=== PATIENT | female | born 1955 | race Caucasian/White ===

== ENCOUNTER → 2016-09-22 17:11 | Emergency (ER) | payer BC ==
[~2016-09-22 17:11] MED LIST: Acetaminophen TAB* 325 MG PO ONE; Rivaroxaban TAB(*) 15 MG PO ONE
--- NOTE | 2016-09-22 18:47 | ED ---
Lower Extremity - HPI Summary HPI Summary: Pt here w/ LLE pain (calf) x 1 week. Sudden onset swelling and worsening of pain today. Denies trauma, hormones, travel, cancer or h/o cancer, smoking (NOTE : quit 3 months ago), h/o clotting d/o, stroke or DC. - History of Current Complaint Chief Complaint: EDExtremityLower Stated Complaint: COMMING FROM CT R/O DVT LEFT LEG Time Seen by Provider: 09/22/16 17:30 Hx Obtained From: Patient, Family/[employer] - partner Pain Intensity: 7 - Allergies/Home Medications Allergies/Adverse Reactions: Allergies Allergy/AdvReac Type Severity Reaction Status Date / Time No Known Allergies Allergy Verified 04/13/12 13:23 PMH/Surg Hx/FS Hx/Imm Hx Previously Healthy: Yes Endocrine/Hematology History: Reports: Hx Thyroid Disease - hypothyroid Denies: Hx Anticoagulant Therapy, Hx Blood Disorders, Hx Diabetes, Hx Coagulopothy Cardiovascular History: Denies: Hx Hypertension, Hx Pacemaker/ICD Respiratory History: Denies: Hx Asthma, Hx Chronic Obstructive Pulmonary Disease (COPD) History: Denies: Hx Renal Disease Neurological History: Denies: Hx Dementia, Hx Seizures Psychiatric History: Denies: Hx Substance Abuse - Cancer History Hx Chemotherapy: No Hx Radiation Therapy: No Infectious Disease History: No Infectious Disease History: Denies: Hx Hepatitis, Hx Human Immunodeficiency Virus (HIV), Traveled Outside the [place] in Last 30 Days - Family History Known Family History: Positive: None - Social History Lives: With Family Alcohol Use: None Hx Substance Use: No Substance Use Type: Reports: None Hx Tobacco Use: Yes Smoking Status (MU): Former Smoker Review of Systems Constitutional: Negative Negative: Fever, Chills, Fatigue Negative: Chest Pain Negative: Shortness Of Breath, Cough - no hemoptysis Positive: no symptoms reported Musculoskeletal: Other - see HPI Skin: Other - see HPI Negative: Rash, Bruising Neurological: Negative Psychological: Normal All Other Systems Reviewed And Are Negative: Yes Physical Exam Triage Information Reviewed: Yes Vital Signs On Initial Exam: Initial Vitals Temp Pulse Resp BP Pulse Ox 96.9 F 57 16 180/88 100 09/22/16 17:13 09/22/16 17:13 09/22/16 17:13 09/22/16 17:13 09/22/16 17:13 Vital Signs Reviewed: Yes Appearance: Positive: Well-Appearing, No Pain Distress, Well-Nourished Skin: Positive: Warm, Dry - no maurice erythema, ecchymosis, s/sx of insect bite/ rash over affected area Head/Face: Positive: Normal Head/Face Inspection Eyes: Positive: Normal, EOMI ENT: Positive: Hearing grossly normal, Pharynx normal Respiratory/Lung Sounds: Positive: Breath Sounds Present Cardiovascular: Positive: Normal, Pulses are Symmetrical in both Upper and Lower Extremities, Leg Edema Left - + Kay's Musculoskeletal: Positive: Normal, Strength/ROM Intact - pain in Lt LE w/ dorsiflexion - antalgic w/ gait Neurological: Positive: Normal, Sensory/Motor Intact, Alert, Oriented to Person Place, Time, CN Intact II-III Psychiatric: Positive: Normal Diagnostics - Vital Signs Vital Signs Temp Pulse Resp BP Pulse Ox 09/22/16 17:17 96.9 F 57 16 180/88 100 09/22/16 17:13 96.9 F 57 16 180/88 100 - Laboratory Result Diagrams: 09/22/16 19:05 09/22/16 19:05 Lab Statement: Any lab studies that have been ordered have been reviewed, and results considered in the medical decision making process. Lower Extremity Course/Dx - Course Course Of Treatment: Pt found to have DVT in LLE. Discussed risk/benefits options of tx including coumadin and non-coumadin therapies. Pt opted for xarelto. AGrees to f/u w/ PCP and return to ED if danger s/sx present. - Diagnoses Provider Diagnoses: Deep vein thrombosis (DVT) of distal vein of left lower extremity Discharge - Discharge Plan Condition: Stable Disposition: HOME Prescriptions: Rivaroxaban TAB(*) [Xarelto 15 mg(*)] 15 mg PO BID #40 tab Patient Education Materials: Deep Venous Thrombosis (ED) Forms: *Work Release Referrals: Tresa Sanford RN [Primary Care Provider] - Additional Instructions: You have a DVT in your left calf region. You have opted to treat this with xarelto. This medication is to be taken every 12 hours at the same time every day. You were prescribed a 21 days course for now however you will need to transition to a 20mg every day course - your PCP can prescribe this for you. It is important that you follow-up with your PCP this week to discuss diagnosis, treatment plan and at some point, to investigate the trigger for this clot (ie. clotting disorder, etc). Call PCP tomorrow morning to schedule appointment. *If you develop chest pain, shortness of breath, back pain, fever, racing heart rate, bloody cough, blood in urine, blood in stool, vomiting blood, return to ED *Avoid contact sports/activities and be very cautious of potential impact scenarios, fall risk situations, etc as your risk of bleeding will be increased with xarelto . You may discuss this in greater detail with your PCP.
[2016-09-22 19:13] LABS: Hematocrit 42 % (35-47); Mean Corpuscular HGB Conc 34 g/dl (31-36); Mean Corpuscular Hemoglobin 28 pg (27-31); Mean Corpuscular Volume 83 fL (80-97); Mean Platelet Volume 8 um3 (7.4-10.4); Red Blood Count 5.01 10^6/ul (4.0-5.4); Red Cell Distribution Width 13 % (10.5-15); White Blood Count 8.9 10^3/ul (3.5-10.8)
[2016-09-22 19:32] LABS: Albumin 4.1 g/dL (3.2-5.2); BUN/Creatinine Ratio 22.7 (8-20); Calcium 9.4 mg/dL (8.6-10.3); EGFR African American 117.5 (>60); EGFR Non-African American 91.4 (>60); Globulin 2.7 g/dL (2-4); Potassium 3.8 mmol/L (3.5-5.0); Total Bilirubin 0.5 mg/dL (0.2-1.0); Total Protein 6.8 g/dL (6.4-8.9)
[2016-09-22 20:36] VITALS: BP 142/58
== END | disposition home or self-care (01) ==
LOC: ED 17:11
DX: I82.4Z2 Acute embolism and thrombosis of unspecified deep veins of left distal lower extremity (principal)
CPT/HCPCS: 36415; 80053; 85025; 85610; 85730; 99283; A9270-GY

== ENCOUNTER 2018-07-19 05:34 | Inpatient (IN) | payer BC ==
--- NOTE | 2018-07-11 03:36 | HP ---
PREOPERATIVE HISTORY AND PHYSICAL: DATE OF ADMISSION/SURGERY: 07/19/18 DATE OF OFFICE VISIT: 07/07/18 ATTENDING SURGEON: Dr. Ever Mcnally.* (DICTATED BY JOSÉ VILLAGOMEZ) PROCEDURE: Left total knee replacement. CHIEF COMPLAINT: Left knee pain. HISTORY OF PRESENT ILLNESS: Sada is a 63-year-old female, who presents to the clinic for left knee pain due to left knee joint osteoarthritis. She has failed conservative measures and therefore agreed to undergo left total knee replacement with Dr. Mcnally on 07/19/18. PAST MEDICAL HISTORY: Hypertension, high cholesterol, arthritis, type 2 diabetes, hypothyroidism, GERD, Oconnell's palsy, and history of DVT 1-1/2 years ago , treated with Xarelto in the past. PAST SURGICAL HISTORY: Hysterectomy, left partial meniscectomy, and . The patient denies prior complications with anesthesia. MEDICATIONS: 1. Levothyroxine 75 mcg 1 by mouth every day. 2. Vitamin B 1 by mouth every day. 3. Vitamin D3 2000 units daily. 4. Amlodipine 5 mg 1 by mouth every day. 5. Atorvastatin 10 mg 1 by mouth every day. 6. Omeprazole 20 mg 1 by mouth every day. 7. Metformin 500 mg 1 by mouth twice a day. 8. Chantix. ALLERGIES: No known drug allergies. FAMILY HISTORY: Positive for diabetes, heart disease, and stroke. She denies family history of DVT or PE. SOCIAL HISTORY: She lives with her spouse. 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 She is a smoker, but on Chantix currently, quitting, she is 2 weeks in. She reports occasional alcohol consumption. She is right hand dominant. REVIEW OF SYSTEMS: A 14-point review of systems was reviewed with the patient. Positive for history of DVT in her leg. Denies history of pulmonary embolism. Denies history of bleeding disorders. No current fever, chills, chest pain, shortness of breath. PHYSICAL EXAMINATION GENERAL: A 63-year-old well-developed, well-nourished female, in no acute distress. VITAL SIGNS: Height 63.5, weight 201, pulse 84, blood pressure 146/96, respiratory rate 15, BMI 35.0. HEENT: Normocephalic, atraumatic. PERRLA. Throat: Clear. NECK: Supple. PULMONARY: Lungs are clear to auscultation bilaterally. No wheezing, rhonchi, or rales. CARDIO: Regular rate and rhythm. S1, S2. No murmurs, gallops, or rubs. No edema. ABDOMEN: Positive bowel sounds, soft, nontender. NEURO: Alert and oriented x3. Cranial nerves grossly intact. MUSCULOSKELETAL: Left lower extremity, skin is intact. No warmth or erythema. Mild effusion. Range of motion 0 to 130. Stable varus and valgus stress, stable Tra, and negative posterior drawer. Tenderness to palpation of the patellofemoral joint in the medial joint line. Calf soft, nontender. +5/5 strength to ankle dorsiflexion and plantar flexion. Neutral alignment of the knee. +2 DP pulse. Sensation intact to light touch distally. DIAGNOSTIC STUDIES: Multi-view x-rays of the left knee revealed osteoarthritis with osteophyte formation. ASSESSMENT: Left knee osteoarthritis. PLAN: The patient is scheduled to undergo left total knee replacement with Dr. Mcnally on 07/19/18. Percocet will be used for postop pain management and Eliquis will be used postoperatively for DVT prophylaxis since she has a history of DVT in the past. JOSÉ VILLAGOMEZ [id number]/[facility] #: [id number] MTDD
[~2018-07-19 05:34] MED LIST changes: -Acetaminophen TAB* 325 MG PO ONE; +Buffered Lidocaine 1% SYRIN* 1 ML/SYRINGE INTRADERM ONE; -Rivaroxaban TAB(*) 15 MG PO ONE
--- OUTSIDE RECORDS SUMMARY | 2018-07-19 05:37 | XMS REPORT | Continuity of Care Document ---
:1955 External Reference #:[id number] Author Name Emi Qureshi PA-C Address [address] [place] [address], [address] [place] [address] Care Team Providers Name Role Phone Sharon Gallegos FNP Primary Care Physician Unavailable Payers Date Identification Numbers Payment Provider Subscriber Policy Number: [id number] [facility] Sada Beebe Group Number: [id number] [address] [id number] PayID: [id number] [place] [address] Advance Directives Description No Information Available Problems Date Description Provider Status Onset: 04/15/2018 Localized, primary osteoarthritis Shannan Bradford MD Active Onset: 03/25/2018 Knee pain Shannan Bradford MD Active Onset: 03/25/2018 Lumbar radiculopathy Shannan Bradford MD Active Onset: 03/25/2018 Knee joint effusion Shannan Bradford MD Active Family History Date Family Member(s) Observation Comments General Diabetes General Heart Disease General Hypertension Social History Type Date Description Comments Sex Unknown Marital Status Lives With Occupation Currently Working Tobacco Use Start: Unknown Currently smokes 1-5 Cigarettes Daily ETOH Use Rarely consumes alcohol Tobacco Use Start: Unknown Patient is a current smoker, smokes every day Recreational Drug Use Never Used Drugs Tobacco Use Start: Unknown Light tobacco smoker (10 or fewer cigarettes/day) Smoking Status Reviewed: 07/11/18 Light tobacco smoker (10 or fewer cigarettes/day) Exercise Type/Frequency Exercises sporadically Allergies, Adverse Reactions, Alerts Description No Known Drug Allergies Medications Medication Date Status Form Strength Qnty SIG Indications Ordering Provider Levothyroxine Active Tablets 75mcg 1 by Unknown Sodium 000 mouth every day Vitamin B Active Tablets 1 by Unknown Complex 000 mouth every day Vitamin D3 Super Active Tablets 2000Unit daily Unknown Strength 000 Amlodipine Active Tablets 5mg 1 by Unknown Besylate 000 mouth every day Atorvastatin Active Tablets 10mg 1 by Unknown Calcium 000 mouth every day Omeprazole Active Capsules DR 20mg 1 by Unknown 000 mouth every day Metformin HCL Active Tablets 500mg 1 by Unknown 000 mouth twice a day Chantix Active Unknown 000 Sertraline HCL Hx Tablets 100mg 1 /2 by Unknown 000 - mouth every 018 day Medications Administered in Office Medication Date Status Form Strength Qnty SIG Indications Ordering Provider No Injection Administered Injection Zaneb 019 MD Suzette Technetium TC Administered Injection Guicho Oviedo 99M 015 Zoë Rios Tetrofosmin, Per Unit Dose Up To 40 Millicuries Depomedrol Administered Injection Carter, Lien, 40MG 010 PA Immunizations Description No Information Available Vital Signs Date Vital Result Comment 07/11/2018 8:51am Height 63.5 inches 5'3.50" Weight 190.00 lb Heart Rate 80 /min BP Systolic 138 mmHg BP Diastolic 76 mmHg Respiratory Rate 18 /min Pain Level 5 BMI (Body Mass Index) 33.1 kg/m2 07/07/2018 8:59am Height 63.5 inches 5'3.50" Weight 201.00 lb Heart Rate 84 /min BP Systolic 146 mmHg BP Diastolic 96 mmHg Respiratory Rate 15 /min Body Temperature 97.7 F Pain Level 7 BMI (Body Mass Index) 35.0 kg/m2 06/02/2018 8:06am Height 63.5 inches 5'3.50" Weight 190.00 lb BP Systolic 140 mmHg BP Diastolic 82 mmHg Respiratory Rate 18 /min Pain Level 3 BMI (Body Mass Index) 33.1 kg/m2 05/27/2018 8:16am Height 63.5 inches 5'3.50" Weight 190.00 lb BP Systolic 124 mmHg BP Diastolic 74 mmHg Respiratory Rate 18 /min Pain Level 3 BMI (Body Mass Index) 33.1 kg/m2 04/15/2018 10:50am Height 63.5 inches 5'3.50" Weight 190.00 lb BP Systolic 132 mmHg BP Diastolic 66 mmHg Respiratory Rate 20 /min Pain Level 3 BMI (Body Mass Index) 33.1 kg/m2 03/25/2018 11:42am Height 63.5 inches 5'3.50" Weight 190.00 lb Heart Rate 72 /min BP Systolic 124 mmHg BP Diastolic 80 mmHg Body Temperature 98.1 F Pain Level 3 BMI (Body Mass Index) 33.1 kg/m2 08/23/2014 9:53am Height 63.5 inches 5'3.50" Weight 181.00 lb with sandals Heart Rate 76 /min BP Systolic Sitting 154 mmHg La reg cuff BP Diastolic Sitting 90 mmHg La reg cuff BP Systolic Standing 150 mmHg La reg cuff BP Diastolic Standing 90 mmHg La reg cuff Respiratory Rate 17 /min BMI (Body Mass Index) 31.6 kg/m2 Ejection Fraction 65% date 07/13/14 07/06/2014 8:29am Height 63.5 inches 5'3.50" Weight 177.00 lb w/o shoes Heart Rate 60 /min BP Systolic 136 mmHg LA, reg cuff, sitting BP Diastolic 82 mmHg LA, reg cuff, sitting BP Systolic Sitting 146 mmHg Ra, reg cuff BP Diastolic Sitting 86 mmHg Ra, reg cuff BP Systolic Standing 140 mmHg Ra BP Diastolic Standing 82 mmHg Ra Respiratory Rate 18 /min BMI (Body Mass Index) 30.9 kg/m2 Results Test Date Facility Test Result H/L Range Note Urinalysis Profile 07/07/2018 [facility] Urine Color Yellow [address] [place] [address] [phone] Urine Appearance Clear Urine Specific [place] 1.017 N 1.010-1.030 Urine pH 7.0 N 5-9 Urine Urobilinogen Negative Negative Urine Ketones Negative Negative Urine Protein Negative Negative Urine Leukocytes Negative Negative Urine Blood Negative Negative Urine Nitrite Negative Negative Urine Bilirubin Negative Negative Urine Glucose Negative Negative CBC Auto Diff 07/07/2018 [facility] White Blood 7.2 10^3/uL N 3.5-10.[address] [place] [address] [phone] Red Blood Count 5.28 10^6/uL High 3.70-4.87 Hemoglobin 15.2 g/dL N 12.0-16.0 Hematocrit 44 % High 33-41 Mean Corpuscular Volume 84 fL N 80-97 Mean Corpuscular Hemoglobin 29 pg N 27-31 Mean Corpuscular HGB Conc 34 g/dL N 31-36 Red Cell Distribution Width 13 % N 10.5-15 Platelet Count 252 10^3/uL N 150-450 Mean Platelet Volume 8.3 fL N 7.4-10.4 Abs Neutrophils 4.2 10^3/uL N 1.5-7.7 Abs Lymphocytes 2.5 10^3/uL N 1.0-4.8 Abs Monocytes 0.3 10^3/uL N 0-0.8 Abs Eosinophils 0.1 10^3/uL N 0-0.6 Abs Basophils 0 10^3/uL N 0-0.2 Abs Nucleated RBC 0 10^3/uL Granulocyte % 58.2 % Lymphocyte % 34.8 % Monocyte % 4.7 % Eosinophil % 1.9 % Basophil % 0.4 % Nucleated Red Blood Cells % 0 Comp Metabolic Panel 07/07/2018 [facility] Sodium 137 mmol/L N 135-145 [address] [place] [address] [phone] Potassium 4.0 mmol/L N 3.5-5.0 Chloride 106 mmol/L N 101-111 Co2 Carbon Dioxide 25 mmol/L N 22-32 Anion Gap 6 mmol/L N 2-11 Glucose 95 mg/dL N 70-100 Blood Urea Nitrogen 20 mg/dL N 6-24 Creatinine 0.63 mg/dL N 0.51-0.95 BUN/Creatinine Ratio 31.7 High 8-20 Calcium 9.2 mg/dL N 8.6-10.3 Total Protein 7.2 g/dL N 6.4-8.9 Albumin 4.6 g/dL N 3.2-5.2 Globulin 2.6 g/dL N 2-4 Albumin/Globulin Ratio 1.8 N 1-3 Total Bilirubin 0.50 mg/dL N 0.2-1.0 Alkaline Phosphatase 77 U/L N 34-104 Alt 22 U/L N 7-52 Ast 19 U/L N 13-39 Egfr Non- 95.8 >60 Egfr 115.9 >60 2 Inr/Protime 07/07/2018 [facility] Inr 0.91 N 0.77-1.[address] [place] [address] [phone] Laboratory test 07/07/2018 [facility] Partial 31.7 seconds N 26.0-36.[address] Thrombo Time MIC Bhandari [address] PTT [phone] Type & Screen 07/07/2018 [facility] Patient B Positive [address] [place] [address] [phone] Antibody Screen NEGATIVE Urine Culture And 07/07/2018 [facility] Urine Culture SEE RESULT [address] [place], [place] [address] [phone] 1 UNILATERAL PRIMARY OSTEOARTHRITIS, LEFT KNEE 2 Because ethnic data is not always readily available, this report includes an eGFR for both -Americans and non- Americans. The National Kidney Disease Education Program (NKDEP) does not endorse the use of the MDRD equation for patients that are not between the ages of 18 and 70, are , have extremes of body size, muscle mass, or nutritional status, or are non- or non-. According to the National Kidney Foundation, irrespective of diagnosis, the stage of the disease is based on the level of kidney function: Stage Description GFR(mL/min/1.73 m(2)) 1 Kidney damage with normal or decreased GFR 90 2 Kidney damage with mild decrease in GFR 60-89 3 Moderate decrease in GFR 30-59 4 Severe decrease in GFR 15-29 5 Kidney failure <15 (or dialysis) 3 SEE RESULT BELOW Name: SADA BEEBE : [address]: Ever Mcnally MD Acct: [id number] Unit: [id number] AGE: 63 Location: [facility] Re07/07/18 SEX: F Status: REG REF SPEC: [id number] THEODORE: 07/07/18-1206 [facility] DR: Ever Mcnally MD REQ: [id number] RECD: 07/07/18 STATUS: ANGELO VOGEL DR: Sharon Gomez SUPERVISOR ENGINE ASSEMBLY _ SOURCE: URINE SPDESC: ORDERED: Urine Culture Procedure Result Reported Site Urine Culture Final 07/08/18- 1211 ML No Growth (<1,000 CFU/mL) * ML - Main Lab . END OF REPORT DEPARTMENT OF PATHOLOGY, [address] [place] [id number] Donald Rankin M.D. Director [facility] # [id number] Procedures Date Code Description Status 05/30/2018 31962 TKR Total Knee Replacement Completed 05/27/201811745 Inject/Drain Joint/Bursa Major W/O US Completed 07/26/2014 24571 Stress Test Completed 07/26/2014 94769 Myocardial Perfusion Imaging Tomographic (Spect) Multiple Completed Studies 07/13/2014 25186 ECHO Transthoracic, Real-Time 2D With Doppler And Color Completed Flow 07/06/2014 51596 EKG Tracing & Interpretation Completed 10/03/2009 87606 Rad Exam; Elbow, Limited Completed 10/03/2009 87167 Inject Tendon Sheath Or Ligament Aponeurosis Eg Plantar Completed Fascia Encounters Type Date Location Provider Dx Diagnosis Office Visit 06/02/2018 [facility] Shannan Bradford MD M17.12 Unilateral primary 8:15a [facility] osteoarthritis, left knee Office Visit 05/27/2018 [facility] Shannan Bradford MD M17.12 Unilateral primary 8:15a [facility] osteoarthritis, left knee Office Visit 04/15/2018 [facility] Shannan Bradford MD M54.16 Radiculopathy, 10:45a [facility] lumbar region M17.12 Unilateral primary osteoarthritis, left knee Office Visit 03/25/2018 11:00a [facility] Shannan Bradford, M25.462 Effusion, left Services [facility] MD murali Gonzalez M54.16 Radiculopathy, lumbar region M25.562 Pain in left knee Office Visit 08/23/2014 10:00a [place] [facility] Guicho Oviedo 786.50 Pain Chest Unspec Of Rita Rios M.D. Office Visit 07/06/2014 8:45a [place] [facility] uGicho Oviedo 785.1 Palpitations Of Rita Rios M.D. 786.50 Pain Chest Unspec Office Visit 10/03/2009 8:30a [facility] Ira Carter, 726.32 [facility] Plan of Treatment Future Appointment(s):07/19/2018 7:30 am - JOSÉ Duval at [facility]07/19/2018 7:30 am - Shannan Bradford MD at [facility].08/02/2018 2:15 pm - Shannan Bradford MD at [facility].07/19/2018 7:30 am - Ever Mcnally M.D. at [facility]. - Ever Mcnally M.D.M17.12 Unilateral primary osteoarthritis, left kneeFollow up:Follow up: Left total knee July 19, 2018
--- OUTSIDE RECORDS SUMMARY | 2018-07-19 05:38 | XMS REPORT | Continuity of Care Document ---
:1955 External Reference #:[id number] Author Name Luisito Walkerjose alejandro Care Team Providers Name Role Phone Sharon Gallegos FNP Primary Care Physician Unavailable Payers Date Identification Numbers Payment Provider Subscriber Policy Number: [id number] [facility] Sada Beebe Group Number: [id number] [address] [id number] PayID: [id number] [place]SE [place] [id number] Advance Directives Description No Information Available Problems [...] Sodium 000 mouth every day Vitamin B 00/00/0 Active Tablets 1 by Unknown Complex 000 [...] 000 Sertraline HCL Hx Tablets 100mg 1 1/2 by Unknown 000 - mouth every 018 day Medications Administered in Office Medication Date Status Form Strength Qnty SIG Indications Ordering Provider No Injection Administered Injection Shannan 019 MD Suzette Technetium TC Administered Injection [...] Result H/L Range Note Urinalysis Profile 07/07/2018 [facility] Urine Color Yellow [address] [place] [address] [phone] Urine Appearance Clear Urine Specific [place] 1.017 N 1.010-1.030 Urine pH 7.0 N 5-9 Urine Urobilinogen Negative Negative Urine Ketones Negative Negative Urine Protein Negative Negative Urine Leukocytes Negative Negative Urine Blood Negative Negative Urine Nitrite Negative Negative Urine Bilirubin Negative Negative Urine Glucose Negative Negative CBC Auto Diff 07/07/2018 [facility] White Blood 7.2 10^3/uL N 3.5-10.[address] [place] [address] [phone] Red Blood Count 5.28 10^6/uL High 3.70-4.87 [...] Cells % 0 Comp Metabolic Panel 07/07/2018 [facility] Sodium 137 mmol/L N 135-[address] [place] [address] [phone] Potassium 4.0 mmol/L N 3.5-5.0 Chloride 106 [...] >60 Egfr 115.9 >60 2 Inr/Protime 07/07/2018 [facility] Inr 0.91 N 0.77-1.[address] [place] [address] [phone] Laboratory test 07/07/2018 [facility] Partial 31.7 seconds N 26.0-36.[address] [place] [address] PTT [phone] Type & Screen 07/07/2018 [facility] Patient B Positive [address] Blood Type [place] [address] [phone] Antibody Screen NEGATIVE Urine Culture And 07/07/2018 [facility] Urine Culture SEE RESULT [address] [place] [address] [phone] 1 UNILATERAL PRIMARY OSTEOARTHRITIS, LEFT KNEE 2 [...] [address]: Ever Mcnally MD Acct: [id number] Unit: [id number] AGE: 63 Location: [facility] Re07/07/18 SEX: F Status: REG REF SPEC: [id number] THE[facility]: 07/07/18-1206 [facility] DR: Ever Mcnally MD REQ: [id number] RECD: 07/07/18 STATUS: ANGELO VOGEL DR: Sharon Gomez FOOD ASSEMBLER _ S[facility] ORDERED: Urine Culture Procedure Result Reported Site Urine Culture Final 07/08/18- 1211 ML No Growth (<1,000 CFU/mL) * ML - Main Lab . END OF REPORT DEPARTMENT OF PATHOLOGY, [address] [place] [address] Donald Rankin M.D. Director [facility] # [id number] Procedures Date Code Description Status 05/30/2018 33306 TKR Total Knee Replacement Completed 05/27/2018 14405 Inject/Drain Joint/Bursa Major W/O US Completed 07/26/2014 42764 Stress Test Completed 07/26/2014 42125 Myocardial Perfusion Imaging Tomographic (Spect) Multiple Completed Studies 07/13/2014 16188 ECHO Transthoracic, Real-Time 2D With Doppler And Color Completed Flow 07/06/2014 77332 EKG Tracing & Interpretation Completed 10/03/2009 42105 Rad Exam; Elbow, Limited Completed 10/03/2009 07659 Inject Tendon Sheath Or Ligament Aponeurosis Eg [...] M25.462 Effusion, left Services Of MD murali WuMShamir M54.16 Radiculopathy, lumbar region M25.562 Pain in left knee Office Visit 08/23/2014 10:00a [facility] Guicho Oviedo 786.50 Pain Chest Unspec Of Rita Rios M.D. Office Visit 07/06/2014 8:45a [facility] Guicho Oviedo 785.1 Palpitations Of Rita Rios M.D. 786.50 Pain Chest Unspec Office Visit 10/03/2009 8:30a [facility] Ira Carter, 726.32 [facility] Plan of Treatment Future Appointment(s):07/19/2018 7:30 am - [facility]/2018 7:30 am - Shannan Bradford MD at [facility]08/02/2018 2:15 pm - Shannan Bradford MD at [facility].07/19/2018 7:30 am - Ever Mcnally M.D. at [facility] - Ever Mcnally M.D.M17.12 Unilateral primary osteoarthritis, left kneeFollow up:Follow up: Left total knee July 19, 2018
--- OUTSIDE RECORDS SUMMARY | 2018-07-19 05:38 | XMS REPORT | Continuity of Care Document ---
:1955 External Reference #:[id number] Author Name Yarelis [place] Care Team Providers Name Role Phone Sharon Gallegos FNP Primary Care Physician Unavailable Payers Date Identification Numbers Payment Provider Subscriber Policy Number: [id number] [facility] Sada Coffey Group Number: [id number] Box PayID: [id number] JOSE LUIS Umaña [id number] Advance Directives Description No Information Available Problems [...] (10 or fewer cigarettes/day) Smoking Status Reviewed: 07/07/18 Light tobacco smoker (10 or fewer cigarettes/day) [...] Ordering Provider No Injection Administered Injection Shannan Bradford MD Technetium TC Administered Injection Guicho [place] 99M 015 Zoë Rios Tetrofosmin, Per Unit Dose Up To 40 Millicuries Depomedrol Administered Injection Carter, Lien, 40MG 010 PA Immunizations Description No Information Available Vital Signs Date Vital Result Comment 07/07/2018 8:59am Height 63.5 inches 5'3.50" Weight [...] BMI (Body Mass Index) 30.9 kg/m2 Results Description No Information Available Procedures Date Code Description Status 05/30/2018 04055 TKR Total Knee Replacement Completed 05/27/2018 15035 Inject/Drain Joint/Bursa Major W/O US Completed 07/26/2014 48719 Stress Test Completed 07/26/2014 96357 Myocardial Perfusion Imaging Tomographic (Spect) Multiple Completed Studies 07/13/2014 17702 ECHO Transthoracic, Real-Time 2D With Doppler And Color Completed Flow 07/06/2014 03709 EKG Tracing & Interpretation Completed 10/03/2009 03714 Rad Exam; Elbow, Limited Completed 10/03/2009 70449 Inject Tendon Sheath Or Ligament Aponeurosis Eg Plantar Completed Fascia Encounters Type Date Location Provider Dx Diagnosis Office Visit 06/02/2018 Orthopedic Shannan Bradford MD M17.12 Unilateral primary 8:15a [facility] osteoarthritis, left knee Office Visit 05/27/2018 Orthopedic Shannan Bradford MD M17.12 Unilateral primary 8:15a [facility] osteoarthritis, left knee Office Visit 04/15/2018 Orthopedic Shannan Bradford MD M54.16 Radiculopathy, 10:45a [facility] lumbar region M17.12 Unilateral primary osteoarthritis, left knee Office Visit 03/25/2018 11:00a Orthopedic Shannan Bradford, M25.462 Effusion, left [facility] MD murali WuMShamir M54.16 Radiculopathy, lumbar region M25.562 Pain in left knee Office Visit 08/23/2014 10:00a [facility] Guicho D. 786.50 Pain Chest Unspec Of Rita Rios M.D. Office Visit 07/06/2014 8:45a [facility] Guicho Preet 785.1 Palpitations Of Rita Rios M.D. 786.50 Pain Chest Unspec Office Visit 10/03/2009 8:30a Orthopedic Ira Carter, 726.32 Epicondylitis [facility] Plan of Treatment Future Appointment(s):08/02/2018 2:15 pm - Shannan [facility]/2018 7:30 am - Ever Mcnally M.D. at [facility]/07/2018 - Shannan Bradford, MDM17.12 Unilateral primary osteoarthritis, left kneeFollow up:Follow up: 10-14 days post op
[2018-07-19] MEDS ORDERED: Famotidine TAB* 20 MG PO ONE (06:00)
[2018-07-19] MEDS ORDERED: Gabapentin CAP(*) 300 MG PO ONE (06:00)
[2018-07-19] MEDS ORDERED: celeCOXIB CAP* 200 MG PO ONE (06:00)
[2018-07-19] MEDS ORDERED: Dexamethasone IV* 4 MG/ML 1 ML (4 MG) IV SLOW PU ONE (06:00)
[2018-07-19] MEDS ORDERED: Acetaminophen TAB* 325 MG PO ONE (06:00)
[2018-07-19] MEDS ORDERED: Acetaminophen TAB* 325 MG ONE (06:12)
[2018-07-19] MEDS ORDERED: Gabapentin CAP(*) 300 MG ONE (06:12)
[2018-07-19] MEDS ORDERED: celeCOXIB CAP* 100 MG ONE (06:12)
[2018-07-19] MEDS ORDERED: Dexamethasone IV* 4 MG/ML 1 ML (4 MG) ONE (06:12)
[2018-07-19] MEDS ORDERED: ceFAZolin 2 GM in NS PREMIX(*) 2 GM/100 ML BAG IVPB ONE (06:13)
[2018-07-19] MEDS ORDERED: Famotidine IV* 10 MG/ML 2 ML (20 mg) ONE (06:13)
[2018-07-19] MEDS: Lactated Ringers 1000 ML Bag* 1,000 ML IV SCH ×4 (06:24→23:58)
[2018-07-19] MEDS ORDERED: Famotidine TAB* 20 MG ONE (06:27)
[2018-07-19] MEDS ORDERED: Lidocaine 1%* 5 ML VIAL ONE (07:11)
[2018-07-19] MEDS ORDERED: ROPIVACAINE 5 MG/ML 30 ML BTL (0.5%) ONE (07:11)
[2018-07-19] MEDS ORDERED: fentaNYL* 50 MCG/ML 2 ML VIAL (100 MCG VIAL) ONE ×2 (07:20→11:54)
[2018-07-19] MEDS ORDERED: Midazolam* 1 MG/ML 2 ML VIAL (2 MG) ONE (07:20)
[2018-07-19] MEDS ORDERED: Rocuronium* 10 MG/ML VIAL ONE (07:20)
[2018-07-19] MEDS ORDERED: Bupivacaine 0.5% W/EPI SDV* 30 ML VIAL ONE (07:33)
[2018-07-19] MEDS ORDERED: KETAMINE HCL* 50 MG/ML 10 ML VIAL ONE (08:05)
[2018-07-19] MEDS ORDERED: HYDROmorphone INJ1* 1 MG/ML SYRINGE ONE ×2 (08:05→11:46)
[2018-07-19] MEDS ORDERED: DiMENhydriNATE IV* 50 MG/ML VIAL IV PUSH PRN (08:26)
[2018-07-19] MEDS ORDERED: PROCHLORPERAZINE INJ 5 MG/ML 2 ML VIAL IV PRN (08:26)
[2018-07-19] MEDS ORDERED: oxyCODONE TAB* 5 MG TAB PO PRN (08:26)
[2018-07-19] MEDS ORDERED: Naloxone* 0.4 MG/ML 1 ML VIAL IV PRN (08:26)
[2018-07-19] MEDS ORDERED: Ketorolac INJ* 30 MG/ML 1 ML VIAL IV PRN (08:26)
[2018-07-19] MEDS ORDERED: Acetaminophen IV 1GM/100ML * 1,000 MG/100 ML VIAL IVPB ONE (08:26)
[2018-07-19] MEDS ORDERED: Acetaminophen IV 1GM/100ML * 100 ML ONE (10:34)
[2018-07-19] MEDS ORDERED: Ketorolac INJ* 30 MG/ML 1 ML VIAL ONE (10:34)
[2018-07-19] MEDS ORDERED: Ondansetron INJ* 2 MG/ML VIAL ONE (10:38)
[2018-07-19] MEDS ORDERED: Magnesium Hydroxide LIQ* 30 ML UDC PO PRN (10:58)
[2018-07-19] MEDS ORDERED: Morphine 4 MG/ML VIAL (1 ml) 4 MG/ML VIAL IV PRN (10:58)
[2018-07-19] MEDS ORDERED: Ondansetron ODT TAB* 4 MG PO PRN (10:58)
[2018-07-19] MEDS ORDERED: diPHENhydraMINE PO* 25 MG PO PRN (10:58)
[2018-07-19] MEDS ORDERED: diPHENhydraMINE IV* 50 MG/ML 1 ml VIAL (BENADRYL) IV PRN (10:58)
[2018-07-19] MEDS ORDERED: traMADol TAB* 50 MG PO PRN (10:58)
[2018-07-19] MEDS ORDERED: Acetaminophen TAB* 325 MG PO SCH (11:00)
[2018-07-19] MEDS ORDERED: oxyCODONE/Acetamin 5/325 MG* TAB PO PRN (11:03)
[2018-07-19] MEDS ORDERED: Acetaminophen TAB* 325 MG PO PRN (11:26)
[2018-07-19] MEDS: HYDROmorphone INJ1* 1 MG/ML SYRINGE IV PRN ×2 (11:47→11:57)
[2018-07-19] MEDS: fentaNYL* 50 MCG/ML 2 ML VIAL (100 MCG VIAL) IV PRN ×4 (11:54→12:04)
[2018-07-19] MEDS ORDERED: Dextrose 50% Syringe 50 ML* 25 GM/50 ML SYRINGE IV PUSH PRN (12:28)
[2018-07-19] MEDS ORDERED: oxyCODONE TAB* 5 MG TAB ONE (13:14)
--- NOTE | 2018-07-19 13:34 | CONS ---
CONSULTATION REPORT: DATE OF CONSULT: 07/19/18 PRIMARY CARE PROVIDER: JOSÉ Zimmer REQUESTING PHYSICIAN: Ever Mcnally MD. ATTENDING PHYSICIAN: Mark Law MD (dictated by JOSÉ Jones). REASON FOR CONSULTATION: Co-medical management. HISTORY OF PRESENT ILLNESS/HOSPITAL COURSE: I refer you to Dr. Mcnally's history and physical from 07/07/18 for complete details, but in short Ms. Coffey is a 63-year- old female with a history of left knee osteoarthritis. She has failed conservative treatment and has elected for a left total knee arthroplasty, which she presented [place] [facility] [place]. She is currently postoperative day 0 left total knee. She has a past medical history of hypertension, hyperlipidemia , diabetes. She denies chest pain, shortness of breath, palpitations, headaches or blurred vision. She states that she feels cold. She denies pain in the limbs but does report pain, rated at 10/10 in the left knee. She states that it feels like "somebody is sitting on it." PAST MEDICAL HISTORY: 1. Hypertension. 2. Hyperlipidemia. 3. Diabetes mellitus type 2. 4. GERD. 5. Osteoarthritis. 6. Oconnell's palsy. 7. History of DVT. PAST SURGICAL HISTORY: Hysterectomy, left partial meniscectomy, x2. HOME MEDICATIONS: 1. Amlodipine 5 mg daily. 2. Metformin 500 mg b.i.d. 3. Levothyroxine 75 mcg daily. 4. Atorvastatin 10 mg daily. 5. Vitamin B 1 daily. 6. Vitamin D3 2000 units daily. 7. Omeprazole 20 daily. 8. Chantix 1 mg p.o. b.i.d. ALLERGIES: NKDA. FAMILY HISTORY: The patient reports family history of diabetes mellitus, heart disease, and stroke. She denies history of cancer. SOCIAL HISTORY: Ms. Coffey is a former smoker. She has been on Chantix for approximately 3 weeks and has been tobacco-free for 3 weeks. She does drink alcohol. She states she drinks approximately 1 drink per week. She denies use of illicit drugs. She lives at home with her . 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 In the event that she is unable to make her own medical decision, she appoints her , Unruly Coffey, to be her surrogate. REVIEW OF SYSTEMS: A 10-point review of systems was performed and all the pertinent positives and negatives are in the HPI. PHYSICAL EXAM: General: Ms. Coffey is a well-developed, well-nourished, middle- aged white woman who is sleeping upon arrival. She wakes easily. She is reported to be in pain but appears to be in no acute distress. Vital Signs: Temperature 96.8, heart rate 90, respiratory rate 16, oxygen saturation 99% on 2 L, blood pressure 144/82. HEENT: Visual jessica are grossly intact. Her pupils are equally round and reactive to light. Extraocular movements are intact. Hearing is grossly intact. Oral mucous membranes are dry. There are no lesions. The pharynx is clear. Cardiovascular: Regular rate and rhythm with S1, S2 present. No murmurs, rubs, or gallops. There is no JVD. Respiratory: Symmetrical chest expansion with no use of accessory muscles. Lungs are clear to auscultation. There is no rhonchi, wheezes, or rubs. Abdomen: Bowel sounds in all quadrants. The abdomen is soft and nontender to palpation. There is no hepatosplenomegaly. Extremities: Skin is warm and smooth bilaterally. There is no edema, clubbing, or cyanosis. The left knee has dressing in place that is clean, dry, and intact. Cryo unit in place. The patient has SCDs to both lower extremities. Capillary refill, sensation, and pulses are within normal limits bilaterally. The patient is able to move all of her extremities. Neuro: The patient is asleep upon arrival but wakes easily. She is alert, she is oriented. ASSESSMENT AND PLAN: Ms. Coffey is a 63-year-old female with a past medical history as described above, who presented to [facility] today for an elective left total knee arthroplasty. The patient will be admitted for: 1. Left total knee arthroplasty. Management per Orthopedics. 2. Hypertension. The patient's home medication amlodipine will be continued. 3. Diabetes mellitus type 2. This medication will be held temporarily. The patient will be placed on sliding scale insulin a.c. and h.s. Metformin can be resumed at discharge. 4. Hyperlipidemia. Continue atorvastatin. 5. Gastroesophageal reflux disease. Continue omeprazole. 6. Tobacco cessation. Continue Chantix at home dose. 7. DVT prophylaxis. DVT prophylaxis per Orthopedics. The patient is noted to have a history of DVT. She is placed on Eliquis 2.5 mg p.o. b.i.d. 8. Code status. Full code. TIME SPENT: Approximately 30 minutes was spent on this consultation, greater than half that time was spent with the patient and her obtaining history , performing physical, and reviewing the plan of care. JOSÉ OSWALD [id number]/CPS #: [id number] MTDD
[2018-07-19] MEDS ORDERED: Morphine INJ* 2 MG/ML 1 ML SYRINGE (TWO MG - NEW SYRINGE VERSION) ONE (14:24)
[2018-07-19] MEDS: ceFAZolin 1 GM ADVAN(*) 1 GM in NS 0.9% 50 ML* 50 ML IVPB SCH ×2 (16:06→23:54)
--- NOTE | 2018-07-19 16:59 | PN ---
Progress Note - Progress Note Date of Service: 07/19/18 Note: Pt seen at bedside POD 0. Knee is painful, due for pain meds in a few minutes. Denies CP, SOB, dizziness or nausea. Dressing CDI, cryo cuff in use, thigh is soft, DF/PF intact, DP2+, sensation intact to light touch distally. Hx DVT on eliquis 2.5 mg po BID starting tomorrow morning.
[2018-07-19] MEDS: oxyCODONE/Acetamin 5/325 MG* TAB PO PRN ×2 (17:03→21:42)
[2018-07-19] MEDS: Atorvastatin* 10 MG TAB PO SCH (17:03)
[2018-07-19] MEDS: Insulin LISPRO* 1 UNITS UNIT SUBCUT SCH ×2 (18:17→21:43)
[2018-07-19] MEDS: oxyCODONE TAB* 5 MG TAB PO PRN ×2 (19:52→23:54)
[2018-07-19] MEDS: Docusate CAP* 100 MG PO SCH (19:55)
[2018-07-19] MEDS: Sertraline* 100 MG TAB PO SCH (19:56)
[2018-07-19] MEDS: Pantoprazole TAB * 40 MG TAB PO SCH (19:56)
[2018-07-19] MEDS: Magnesium Hydroxide LIQ* 30 ML UDC PO SCH (19:57)
[2018-07-19] MEDS ORDERED: amLODIPine TAB* 5 MG PO SCH (21:00)
[2018-07-20] MEDS: oxyCODONE/Acetamin 5/325 MG* TAB PO PRN ×5 (02:15→21:53)
[2018-07-20] MEDS: oxyCODONE TAB* 5 MG TAB PO PRN ×5 (05:10→23:52)
[2018-07-20 05:40] LABS: Hematocrit 30 % (33-41); Hemoglobin 10.3 g/dL (12.0-16.0); Mean Platelet Volume 8.3 fL (7.4-10.4); Platelet Count 194 10^3/uL (150-450)
[2018-07-20 05:56] LABS: BUN/Creatinine Ratio 21.5 (8-20); EGFR African American 111.8 (>60); EGFR Non-African American 92.4 (>60); Potassium 3.9 mmol/L (3.5-5.0)
[2018-07-20] MEDS: Insulin LISPRO* 1 UNITS UNIT SUBCUT SCH ×4 (07:49→20:07)
[2018-07-20] MEDS ORDERED: NS 0.9% 500 ML* 500 ML IV SCH (08:00)
[2018-07-20] MEDS: ceFAZolin 1 GM ADVAN(*) 1 GM in NS 0.9% 50 ML* 50 ML IVPB SCH (08:37)
[2018-07-20] MEDS: Magnesium Hydroxide LIQ* 30 ML UDC PO SCH ×2 (08:38→19:53)
[2018-07-20] MEDS: Apixaban* 2.5 MG TAB PO SCH ×2 (08:39→19:52)
[2018-07-20] MEDS: Docusate CAP* 100 MG PO SCH ×2 (08:39→19:51)
[2018-07-20] MEDS: Pantoprazole TAB * 40 MG TAB PO SCH (08:39)
[2018-07-20] MEDS: Sertraline* 100 MG TAB PO SCH (08:39)
[2018-07-20] MEDS ORDERED: Pneumococcal *Vac Polyvalent 0.5 ML VIAL IM ONE (09:00)
--- NOTE | 2018-07-20 09:12 | PN ---
Progress Note - Progress Note Date of Service: 07/20/18 SOAP: Subjective: []Patient was seen and examined at bedside today. Knee pain is rated 4/10, very pleased with pain control. Denies CP, SOB, dizziness, nausea. Has a history of DVT, no complaint of calf pain, CP, SOB. Anticipates dc to home tomorrow with her as her caregiver. Objective: []General: Well appearing, NAD LLE: Left knee dressing CDI, thigh is soft, DF/PF intact, DP2+, sensation intact to light touch distally Calves are supple and nontender without erythema, edema or palpable cords Assessment: [] POD 1 sp left total knee replacement 07/[address] Bradford and Dr Mcnally Plan: []WBAT PT/OT eliquis 2.5 mg po bid x 30 days post op for dvt prophylaxis Vital Signs Temp 98.7 F 07/20/18 08:03 Pulse 65 07/20/18 08:03 Resp 16 07/20/18 08:03 BP 116/57 07/20/18 08:03 Pulse Ox 95 07/20/18 08:03 Intake & Output 07/19/18 07/20/18 07/20/18 18:59 06:59 18:59 Intake Total 2840 1997 480 Output Total 1999 980 200 Balance 840 1017 280 Intake: IV Fluids 2600 906 LR 2600 906 IVPB 61 ABX - CEFAZOLIN 61 Oral 240 1030 480 Output: Urine 200 Morales 2000 980 Other: # Bowel Movements 0 Laboratory Last Values Hgb 10.3 g/dL (12.0-16.0) L 07/20/18 05:23 Hct 30 % (33-41) L 07/20/18 05:23 Plt Count 194 10^3/uL (150-450) 07/20/18 05:23 MPV 8.3 fL (7.4-10.4) 07/20/18 05:23 Sodium 136 mmol/L (135-145) 07/20/18 05:23 Potassium 3.9 mmol/L (3.5-5.0) 07/20/18 05:23 Chloride 105 mmol/L (101-111) 07/20/18 05:23 Carbon Dioxide 28 mmol/L (22-32) 07/20/18 05:23 Anion Gap 3 mmol/L (2-11) 07/20/18 05:23 BUN 14 mg/dL (6-24) 07/20/18 05:23 Creatinine 0.65 mg/dL (0.51-0.95) 07/20/18 05:23 Est GFR ( Amer) 111.8 (>60) 07/20/18 05:23 Est GFR (Non-Af Amer) 92.4 (>60) 07/20/18 05:23 BUN/Creatinine Ratio 21.5 (8-20) H 07/20/18 05:23 Glucose 134 mg/dL (70-100) H 07/20/18 05:23 POC Glucose (mg/dL) 138 mg/dL (70-100) H 07/20/18 08:04 Calcium 8.0 mg/dL (8.6-10.3) L 07/20/18 05:23
--- NOTE | 2018-07-20 09:21 | PN ---
Progress Note - Progress Note Date of Service: 07/20/18 Note: Pt seen and examined. She is doing ok. Pain controlled. Denies SOB or calf pain. Ambulated with PT. Temp Pulse Resp BP Pulse Ox 98.7 F 65 16 116/57 95 07/20/18 08:03 07/20/18 08:03 07/20/18 08:03 07/20/18 08:03 07/20/18 08:03 NAD. LLE: dressing in place. calf soft nontender, silt grossly distally. able to flex/ext digits and DF/PF foot. Laboratory Results - last 24 hr 07/19/18 07/19/18 07/19/18 06:22 17:03 21:34 Hgb Hct Plt Count MPV Sodium Potassium Chloride Carbon Dioxide Anion Gap BUN Creatinine Est GFR ( Amer) Est GFR (Non-Af Amer) BUN/Creatinine Ratio Glucose POC Glucose (mg/dL) 123 H 145 H 144 H Calcium 07/20/18 07/20/18 07/20/18 05:23 05:23 07:30 Hgb 10.3 L Hct 30 L Plt Count 194 MPV 8.3 Sodium 136 Potassium 3.9 Chloride 105 Carbon Dioxide 28 Anion Gap 3 BUN 14 Creatinine 0.65 Est GFR ( Amer) 111.8 Est GFR (Non-Af Amer) 92.4 BUN/Creatinine Ratio 21.5 H Glucose 134 H POC Glucose (mg/dL) 63 L Calcium 8.0 L 07/20/18 08:04 Hgb Hct Plt Count MPV Sodium Potassium Chloride Carbon Dioxide Anion Gap BUN Creatinine Est GFR ( Amer) Est GFR (Non-Af Amer) BUN/Creatinine Ratio Glucose POC Glucose (mg/dL) 138 H Calcium Xrays acceptable A/P 63 yo F POD#1 from L TKA doing well analgesia PT eliquis for DVT ppx due to history dispo when stable.
[2018-07-20] MEDS: Ondansetron INJ* 2 MG/ML VIAL IV PRN ×2 (09:42→23:58)
--- NOTE | 2018-07-20 15:56 | PN ---
Subjective Date of Service: 07/20/18 Interval History: Resting in recliner on assessment with at bedside. Reports pain was severe this morning after PT, but better controlled this afternoon after PT. Reports one episode of dizziness after changing positions this morning that has since resolved. Reports she is voiding without difficulty since barreto removed. Denies calf pain/tenderness, numbness/tinging, cp, sob, nausea, vomiting, diarrhea, fever, chills Objective Active Medications: Acetaminophen (Tylenol Tab*) 975 mg PO Q8H PRN PRN Reason: FEVER/PAIN Apixaban (Eliquis*) 2.5 mg PO BID [facility] Last Admin: 07/20/18 08:39 Dose: 2.5 mg Atorvastatin Calcium (Lipitor*) 10 mg PO 1700 [facility] Last Admin: 07/19/18 17:03 Dose: 10 mg Cyclobenzaprine HCl (Flexeril Tab*) 10 mg PO TID PRN PRN Reason: SPASMS Dextrose (D50w Syringe 50 Ml*) 12.5 gm IV PUSH .FOR FS < 60 - SS PRN PRN Reason: FS < 60 Diphenhydramine HCl (Benadryl Iv*) 25 mg IV Q6H PRN PRN Reason: itching Diphenhydramine HCl (Benadryl Po*) 25 mg PO Q6H PRN PRN Reason: itching Docusate Sodium (Colace Cap*) 100 mg PO BID [facility] Last Admin: 07/20/18 08:39 Dose: 100 mg Lactated Ringer's (Lactated Ringers 1000 Ml Bag*) 1,000 mls @ 100 mls/hr IV PER RATE [facility] Last Admin: 07/19/18 23:58 Dose: 100 mls/hr Insulin Human Lispro (Humalog*) 0 units SUBCUT ACHS [facility]; Protocol Last Admin: 07/20/18 11:45 Dose: Not Given Magnesium Hydroxide (Milk Of Magnesia Liq*) 30 ml PO BID [facility] Last Admin: 07/20/18 08:38 Dose: 30 ml Magnesium Hydroxide (Milk Of Magnesia Liq*) 30 ml PO Q6H PRN PRN Reason: constipation Morphine Sulfate (Morphine 4 Mg/Ml Vial (1 Ml)) 2 mg IV Q2H PRN PRN Reason: PAIN - UNRELIEVED Ondansetron HCl (Zofran Inj*) 4 mg IV Q6H PRN PRN Reason: nausea Last Admin: 07/20/18 09:42 Dose: 4 mg Ondansetron HCl (Zofran Odt Tab*) 4 mg PO Q6H PRN PRN Reason: NAUSEA Oxycodone HCl (Roxycodone Tab*) 10 mg PO Q4H PRN PRN Reason: PAIN - SEVERE Last Admin: 07/20/18 15:06 Dose: 10 mg Oxycodone/Acetaminophen (Percocet 5/325 Tab*) 1 tab PO Q4H PRN PRN Reason: PAIN - MODERATE Oxycodone/Acetaminophen (Percocet 5/325 Tab*) 2 tab PO Q4H PRN PRN Reason: PAIN - MODERATE TO SEVERE Last Admin: 07/20/18 12:16 Dose: 2 tab Pantoprazole Sodium (Protonix Tab*) 40 mg PO DAILY [facility] Last Admin: 07/20/18 08:39 Dose: 40 mg Sertraline HCl (Zoloft*) 200 mg PO DAILY [facility] Last Admin: 07/20/18 08:39 Dose: 200 mg Varenicline (Chantix (Nf)) 1 mg PO BID [facility]; Protocol Last Admin: 07/20/18 08:38 Dose: 1 mg Vital Signs - 8 hr 07/20/18 07/20/18 07/20/18 08:00 08:03 09:43 Temperature 98.7 F Pulse Rate 65 Respiratory 20 16 18 Rate Blood Pressure 116/57 (mmHg) O2 Sat by Pulse 95 95 Oximetry 07/20/18 07/20/18 07/20/18 09:47 11:16 12:16 Temperature 97.7 F Pulse Rate 61 Respiratory 20 16 18 Rate Blood Pressure 132/62 (mmHg) O2 Sat by Pulse 97 Oximetry 07/20/18 07/20/18 15:06 15:07 Temperature Pulse Rate Respiratory 18 18 Rate Blood Pressure (mmHg) O2 Sat by Pulse Oximetry Oxygen Devices in Use Now: None Appearance: Comfortable, NAD Eyes: No Scleral Icterus Ears/Nose/Mouth/Throat: Clear Oropharnyx, Mucous Membranes Moist Neck: NL Appearance and Movements; NL JVP Respiratory: Symmetrical Chest Expansion and Respiratory Effort, Clear to Auscultation Cardiovascular: NL Sounds; No Murmurs; No JVD, RRR, - - Trace edema to LLE Abdominal: NL Sounds; No Tenderness; No Distention Lymphatic: No Cervical Adenopathy Extremities: No Clubbing, Cyanosis Skin: No Rash or Ulcers Neurological: Alert and Oriented x 3, NL Muscle Strength and Tone Nutrition: Taking PO's Result Diagrams: 07/20/18 05:23 07/20/18 05:23 Additional Lab and Data: Laboratory Results - last 24 hr 07/19/18 07/19/18 07/19/18 06:22 17:03 21:34 Hgb Hct Plt Count MPV Sodium Potassium Chloride Carbon Dioxide Anion Gap BUN Creatinine Est GFR ( Amer) Est GFR (Non-Af Amer) BUN/Creatinine Ratio Glucose POC Glucose (mg/dL) 123 H 145 H 144 H Calcium 07/20/18 07/20/18 07/20/18 05:23 05:23 07:30 Hgb 10.3 L Hct 30 L Plt Count 194 MPV 8.3 Sodium 136 Potassium 3.9 Chloride 105 Carbon Dioxide 28 Anion Gap 3 BUN 14 Creatinine 0.65 Est GFR ( Amer) 111.8 Est GFR (Non-Af Amer) 92.4 BUN/Creatinine Ratio 21.5 H Glucose 134 H POC Glucose (mg/dL) 63 L Calcium 8.0 L 07/20/18 07/20/18 08:04 11:37 Hgb Hct Plt Count MPV Sodium Potassium Chloride Carbon Dioxide Anion Gap BUN Creatinine Est GFR ( Amer) Est GFR (Non-Af Amer) BUN/Creatinine Ratio Glucose POC Glucose (mg/dL) 138 H 117 H Calcium Microbiology and Other Data: . Assess/Plan/Problems-Billing Assessment: 63 yr old female with pmh of htn, hld, dm2, gerd, oa, enrique's palsy, hx of dvt; who is status post left total knee replacement - Patient Problems (1) Status post total left knee replacement Comment: - POD 1 - Management per ortho (2) Dizziness Comment: - Resolved - Suspected seconary to hypotension, post op status, medications, dehydration - Cont IVF - Cont to monitor (3) Hypertension Comment: - Amlodipine held this morning given report of dizziness and documented mild hypotension. - Now normotensive. - Consider restarting tomorrow or may resume at discharge (4) Hyperlipidemia Comment: - Cont statin (5) Diabetes Comment: - Cont to hold Metformin while inpatient and continue sliding scale - May resume Metformin at discharge (6) GERD (gastroesophageal reflux disease) Comment: - Cont omeprazole (7) History of DVT (deep vein thrombosis) Comment: - DVT prophylasix per ortho (8) DVT prophylaxis Comment: - Eliquis per ortho Attending: Rebecca Daly
[2018-07-20] MEDS: Atorvastatin* 10 MG TAB PO SCH (17:00)
[2018-07-20] MEDS: Cyclobenzaprine TAB* 10 MG PO PRN ×2 (19:51→23:52)
[2018-07-21] MEDS: oxyCODONE/Acetamin 5/325 MG* TAB PO PRN ×4 (05:21→19:51)
[2018-07-21 06:24] LABS: Hematocrit 29 % (33-41); Mean Platelet Volume 8.2 fL (7.4-10.4); Platelet Count 195 10^3/uL (150-450)
--- NOTE | 2018-07-21 06:44 | PN ---
Progress Note - Progress Note Date of Service: 07/21/18 Note: Pt in pain overnight not controlled well. Denies SOB or CP. No numbness or tingling. Temp Pulse Resp BP Pulse Ox 99.0 F 95 20 116/64 92 07/21/18 03:55 07/21/18 03:55 07/21/18 05:21 07/21/18 03:55 07/21/18 03:[address]. cold pack in place. difficulty bending and extending leg due to pain. calf soft and nontender. sensate to light touch distally. brisk cap refill. xrays acceptable A/P WBAT, ROM- PT/OT eliquis for dvt ppx pain control. will have to change up pain medication dispo when meets criteria
[2018-07-21] MEDS: oxyCODONE TAB* 5 MG TAB PO PRN ×3 (07:21→17:32)
[2018-07-21] MEDS: Magnesium Hydroxide LIQ* 30 ML UDC PO SCH ×2 (07:22→19:50)
[2018-07-21] MEDS: Insulin LISPRO* 1 UNITS UNIT SUBCUT SCH ×4 (07:27→20:17)
[2018-07-21] MEDS: Docusate CAP* 100 MG PO SCH ×2 (08:34→19:50)
[2018-07-21] MEDS: Sertraline* 100 MG TAB PO SCH (08:34)
[2018-07-21] MEDS: Apixaban* 2.5 MG TAB PO SCH ×2 (08:34→19:51)
[2018-07-21] MEDS: Pantoprazole TAB * 40 MG TAB PO SCH (08:34)
[2018-07-21] MEDS ORDERED: Ketorolac INJ* 15 MG/ML 1 ML VIAL IV PUSH PRN (09:19)
[2018-07-21] MEDS ORDERED: Ketorolac INJ* 15 MG/ML 1 ML VIAL ONE (09:28)
[2018-07-21] MEDS ORDERED: Magnesium Hydroxide LIQ* 30 ML UDC PO PRN ×2 (10:32→11:00)
[2018-07-21] MEDS ORDERED: Polyethylene Glycol 3350* 17 GM PACKET PO PRN (10:32)
[2018-07-21] MEDS ORDERED: Senna TAB PO PRN (10:32)
--- NOTE | 2018-07-21 10:34 | PN ---
Subjective Date of Service: 07/21/18 Interval History: Patient continues to be in severe pain. Patient states that her pain is severe at rest and is worse with PT. Patient states that she got somewhat dizzy with exertion. Patient is having intermittent nausea with is responsive to medication. Patient denies CP, SOB, F/C, abdominal pain, dysuria, or other pain. Patient is passing gas and has not had a BM. Family History: Unchanged from Admission Social History: Unchanged from Admission Past Medical History: Unchanged from Admission Objective Active Medications: Acetaminophen (Tylenol Tab*) 975 mg PO Q8H PRN PRN Reason: FEVER/PAIN Apixaban (Eliquis*) 2.5 mg PO BID [facility] Last Admin: 07/21/18 08:34 Dose: 2.5 mg Atorvastatin Calcium (Lipitor*) 10 mg PO 1700 [facility] Last Admin: 07/20/18 17:00 Dose: 10 mg Cyclobenzaprine HCl (Flexeril Tab*) 10 mg PO TID PRN PRN Reason: SPASMS Last Admin: 07/20/18 23:52 Dose: 10 mg Dextrose (D50w Syringe 50 Ml*) 12.5 gm IV PUSH .FOR FS < 60 - SS PRN PRN Reason: FS < 60 Diphenhydramine HCl (Benadryl Iv*) 25 mg IV Q6H PRN PRN Reason: itching Diphenhydramine HCl (Benadryl Po*) 25 mg PO Q6H PRN PRN Reason: itching Docusate Sodium (Colace Cap*) 100 mg PO BID [facility] Last Admin: 07/21/18 08:34 Dose: 100 mg Lactated Ringer's (Lactated Ringers 1000 Ml Bag*) 1,000 mls @ 100 mls/hr IV PER RATE [facility] Last Admin: 07/19/18 23:58 Dose: 100 mls/hr Insulin Human Lispro (Humalog*) 0 units SUBCUT ACHS [facility]; Protocol Last Admin: 07/21/18 07:27 Dose: Not Given Ketorolac Tromethamine (Toradol Inj*) 15 mg IV PUSH Q6H PRN PRN Reason: PAIN - MODERATE Magnesium Hydroxide (Milk Of Magnesia Liq*) 30 ml PO BID [facility] Last Admin: 07/21/18 07:22 Dose: 30 ml Magnesium Hydroxide (Milk Of Magnesia Liq*) 30 ml PO Q6H PRN PRN Reason: constipation Morphine Sulfate (Morphine 4 Mg/Ml Vial (1 Ml)) 2 mg IV Q2H PRN PRN Reason: PAIN - UNRELIEVED Last Admin: 07/20/18 23:59 Dose: 2 mg Ondansetron HCl (Zofran Inj*) 4 mg IV Q6H PRN PRN Reason: nausea Last Admin: 07/20/18 23:58 Dose: 4 mg Ondansetron HCl (Zofran Odt Tab*) 4 mg PO Q6H PRN PRN Reason: NAUSEA Last Admin: 07/21/18 07:28 Dose: 4 mg Oxycodone HCl (Roxycodone Tab*) 10 mg PO Q4H PRN PRN Reason: PAIN - SEVERE Last Admin: 07/21/18 07:21 Dose: 10 mg Oxycodone/Acetaminophen (Percocet 5/325 Tab*) 1 tab PO Q4H PRN PRN Reason: PAIN - MODERATE Oxycodone/Acetaminophen (Percocet 5/325 Tab*) 2 tab PO Q4H PRN PRN Reason: PAIN - MODERATE TO SEVERE Last Admin: 07/21/18 09:31 Dose: 2 tab Pantoprazole Sodium (Protonix Tab*) 40 mg PO DAILY [facility] Last Admin: 07/21/18 08:34 Dose: 40 mg Sertraline HCl (Zoloft*) 200 mg PO DAILY [facility] Last Admin: 07/21/18 08:34 Dose: 200 mg Varenicline (Chantix (Nf)) 1 mg PO BID [facility]; Protocol Last Admin: 07/21/18 08:34 Dose: 1 mg Vital Signs - 8 hr 07/21/18 07/21/18 07/21/18 03:55 05:21 07:21 Temperature 99.0 F Pulse Rate 95 Respiratory 18 20 18 Rate Blood Pressure 116/64 (mmHg) O2 Sat by Pulse 92 Oximetry 07/21/18 07/21/18 07/21/18 07:26 07:39 08:00 Temperature 99.2 F Pulse Rate 95 Respiratory 18 16 18 Rate Blood Pressure 129/67 (mmHg) O2 Sat by Pulse 95 95 Oximetry 07/21/18 07/21/18 09:03 09:31 Temperature Pulse Rate Respiratory 18 18 Rate Blood Pressure (mmHg) O2 Sat by Pulse Oximetry Oxygen Devices in Use Now: None Appearance: Patient is a 63yo female who appears stated age and is sitting in the bed in NAD. Eyes: No Scleral Icterus, PERRLA Ears/Nose/Mouth/Throat: NL Teeth, Lips, Gums, Clear Oropharnyx, Mucous Membranes Moist Neck: NL Appearance and Movements; NL JVP, Trachea Midline Respiratory: Symmetrical Chest Expansion and Respiratory Effort, Clear to Auscultation Cardiovascular: NL Sounds; No Murmurs; No JVD, RRR, No Edema Abdominal: NL Sounds; No Tenderness; No Distention, No Hepatosplenomegaly Lymphatic: No Cervical Adenopathy Extremities: No Edema, No Clubbing, Cyanosis Skin: No Nodules or Sclerosis, - - Left Knee covered in bulky dressing. Neurological: Alert and Oriented x 3, NL Sensation, NL Muscle Strength and Tone , - - CN II-XII intact. Result Diagrams: 07/21/18 06:05 07/20/18 05:23 Additional Lab and Data: Laboratory Results - last 24 hr Microbiology and Other Data: . Assess/Plan/Problems-Billing Assessment: 63 yr old female with PMH of htn, hld, dm2, gerd, oa, enrique's palsy, hx of dvt; who is status post left total knee replacement and doing well. - Patient Problems (1) Status post total left knee replacement Current Visit: Yes Status: Acute Code(s): Z96.652 - PRESENCE OF LEFT ARTIFICIAL KNEE JOINT SNOMED Code(s): 2277501332477 Comment: - POD #2 - Management per ortho - PT/OT, Trend H/H, Bowel Regimen. (2) Diabetes Current Visit: Yes Status: Acute Code(s): E11.9 - TYPE 2 DIABETES MELLITUS WITHOUT COMPLICATIONS SNOMED Code(s): 37560318 Comment: - Cont to hold Metformin while inpatient and continue sliding scale - May resume Metformin at discharge - Good control. (3) Dizziness Current Visit: Yes Status: Acute Code(s): R42 - DIZZINESS AND GIDDINESS SNOMED Code(s): 390072305 Comment: - Intermittent with exertion, continue to hold BP meds. (4) GERD (gastroesophageal reflux disease) Current Visit: Yes Status: Acute Code(s): K21.9 - GASTRO-ESOPHAGEAL REFLUX DISEASE WITHOUT ESOPHAGITIS SNOMED Code(s): 276857622 Comment: - Cont omeprazole (5) History of DVT (deep vein thrombosis) Current Visit: Yes Status: Acute Code(s): Z86.718 - PERSONAL HISTORY OF OTHER VENOUS THROMBOSIS AND EMBOLISM SNOMED Code(s): 956024055 Comment: - Eliquis (6) Hyperlipidemia Current Visit: Yes Status: Acute Code(s): E78.5 - HYPERLIPIDEMIA, UNSPECIFIED SNOMED Code(s): 15807135 Comment: - Cont statin (7) Hypertension Current Visit: Yes Status: Acute Code(s): I10 - ESSENTIAL (PRIMARY) HYPERTENSION SNOMED Code(s): 38501769 Comment: - Normotensive with dizziness with exertion. Continue to hold amlodipine. (8) DVT prophylaxis Current Visit: Yes Status: Acute Code(s): UIF4762 - SNOMED Code(s): 290260616 Comment: - Nancyqucarissa per ortho Status and Disposition: Inpatient, discharge to home when able, hopefully 1-2 days.
[2018-07-21] MEDS ORDERED: Scopolamine 1.5 mg* PATCH TRANSDERM SCH (11:00)
[2018-07-21] MEDS: Atorvastatin* 10 MG TAB PO SCH (17:32)
[2018-07-21] MEDS ORDERED: Magnesium Hydroxide LIQ* 30 ML UDC PO SCH (21:00)
[2018-07-21] MEDS ORDERED: Docusate CAP* 100 MG PO SCH (21:00)
[2018-07-22] MEDS: oxyCODONE/Acetamin 5/325 MG* TAB PO PRN ×2 (00:03→07:45)
[2018-07-22 06:56] LABS: Hematocrit 28 % (33-41); Hemoglobin 9.3 g/dL (12.0-16.0); Mean Platelet Volume 8.5 fL (7.4-10.4); Platelet Count 182 10^3/uL (150-450)
[2018-07-22] MEDS: Sertraline* 100 MG TAB PO SCH (07:45)
[2018-07-22] MEDS: Docusate CAP* 100 MG PO SCH (07:45)
[2018-07-22] MEDS: Pantoprazole TAB * 40 MG TAB PO SCH (07:45)
[2018-07-22] MEDS: Apixaban* 2.5 MG TAB PO SCH (07:45)
[2018-07-22] MEDS: Insulin LISPRO* 1 UNITS UNIT SUBCUT SCH (07:46)
[2018-07-22] MEDS: Magnesium Hydroxide LIQ* 30 ML UDC PO SCH (07:46)
--- NOTE | 2018-07-22 09:39 | PN ---
Progress Note - Progress Note Date of Service: 07/22/18 Note: Pt seen and examined today. Feeling better. Pain better controlled. Denies SOB/ CP/calf pain. Temp Pulse Resp BP Pulse Ox 99.7 F 85 18 108/60 92 07/22/18 07:43 07/22/18 07:43 07/22/18 08:00 07/22/18 07:43 07/22/18 08:00 NAD. AAOX3. LLE: dressing in place.calf soft, nontender. SILT about 1st dws, medial, lateral, and plantar foot. able to flex to 45 degrees. brisk cap refill A/P 63 yo F POD #3 from L TKA analgesia WBAT, ROM dvt ppx with eliquis will see in 10-14 days post op
--- NOTE | 2018-07-22 11:04 | DS ---
Orthopedic Discharge Summary - Discharge Summary Date of Admission:07/19/18 Date of Discharge: 07/22/18 Date of Surgery: 07/19/18 Attending Orthopedic Provider: Dr. Mcnally/ Dr. Bradford Pre-operative Diagnosis: DJD left knee Operative Procedure: Left total knee arthroplasty Condition of Patient: stable History: DEBORAH BEEBE is a 63 year old F with years of increasingly severe left knee pain. Patient has failed conservative management and has elected to undergo a left total knee replacement Hospital Course: DEBORAH was admitted to [facility] on 07/19/18. Patient underwent a left total without complication followed by a brief recovery in PACU and transfer to the Short Stay Surgical Unit in stable condition. Our hospitalist service, physical therapy and occupational therapy also participated in this patients care. Post-op day 1: patient was alert and in no acute distress. Dressing was clean, dry and intact. Operative extremity dorsiflexion and plantarflexion intact, sensation intact to light touch distally , DP2+. Post-op day two: dressing was changed, incision was clean, dry and intact. Her pain was under better control. Patient was deemed to be medically and orthopedically stable for discharge home. Physical therapy goals were met. Home Medications Medication Instructions Recorded Confirmed Type Sertraline* [Zoloft*] 200 mg PO BEDTIME 04/13/12 07/19/18 History Atorvastatin* [Lipitor 10 MG*] 10 mg PO QPM 08/09/17 07/19/18 History Omeprazole 20 mg PO BEDTIME 08/09/17 07/19/18 History Vit B Complex 100 Combo No.2 100 mg PO BEDTIME 08/13/17 07/19/18 History [Balanced B-100] Metformin ER (NF) 500 mg PO BID 07/07/18 07/19/18 History Varenicline (NF) [Chantix 1 MG TAB 1 mg PO BID 07/07/18 07/19/18 History (NF)] Apixaban* [Eliquis*] 2.5 mg PO BID #60 tab 07/22/18 Rx Cyclobenzaprine TAB* [Flexeril 10 10 mg PO TID PRN #60 tab 07/22/18 Rx MG TAB*] Docusate CAP* [Colace Cap*] 100 mg PO BID cap 07/22/18 Rx oxyCODONE/Acetamin 5/325 MG* 1 - 2 tab PO Q4H PRN #70 tab MDD 10 07/22/18 Rx [Percocet 5/325 TAB*] Discharge home today WBAT LLE VNS Eliquis 2.5 mg BID for 1 month post op for DVT prophylaxis Percocet 5/325 1-2 po q 4hrs, #70, MDD 10 Flexeril 10 mg TID prn, #60 hold Amlodipine per hospitalists Follow up with Dr. Mcnally or Suzette as scheduled.
[2018-07-22] MEDS: Cyclobenzaprine TAB* 10 MG PO PRN (11:44)
[2018-07-22] MEDS: Ondansetron INJ* 2 MG/ML VIAL IV PRN (11:44)
[2018-07-22] MEDS: oxyCODONE TAB* 5 MG TAB PO PRN (11:45)
[2018-07-22 12:05] VITALS: BP 113/62
[2018-07-24] MEDS ORDERED: Scopolamine PATCH Remove* 1 NOTE MISC PATCH OFF SCH (11:00)
--- NOTE | 2018-08-10 01:14 | OP ---
CC: PCP, Sharon Gomez NP * DATE OF OPERATION: 07/19/18 - ROOM #341 DATE OF : 57 SURGEON: Shannan Bradford MD. OPERATOR AND TRUCK DRIVER: Ever Mcnally MD. FLUX MIXER: Amanda Germain. ANESTHESIOLOGIST: Dr. Etienne. ANESTHESIA: Femoral canal block and spinal anesthesia with local MAC. PRE-OP DIAGNOSIS: Severe arthritis of the left knee. POST-OP DIAGNOSIS: Severe arthritis of the left knee. OPERATIVE PROCEDURE: Left total knee replacement. TOURNIQUET TIME: 33 minutes at 275 mmHg. COMPONENT UTILIZED: Jailene Persona knee posterior stabilized size 4 femur, size C tibia, poly was size 11, patella was size 13, stem is 14 x 30. OUTPUT: None. ESTIMATED BLOOD LOSS: 200. INDICATIONS: Sada Coffey is a 63-year-old female who has had persistent knee pain, refractory to conservative management. She has a history of a knee arthroscopy, which was done with partial meniscectomy. She has significant severe arthritis of the medial compartment and the patellofemoral compartment. She has failed physical therapy, antiinflammatories, ice and heat, and injection. She has elected to proceed with surgical treatment. Risks and benefits were discussed at length including but not limited to bleeding, infection, damage to nerves; vessels; surrounding structures, wound nonhealing, persistent pain, need for further surgery, scarring, stiffness, incomplete relief of symptoms, risks of anesthesia, and risk of DVT. The patient has a history of DVT and will be placed on Eliquis postoperatively. She underwent preoperative medical risk optimization for surgery. DESCRIPTION OF PROCEDURE: The patient was checked into the holding area and signed by Dr. Mcnally and Dr. Bradford. Dr. Etienne administered the canal block. The patient was then brought back to the operating suite, where she was placed in supine position on the operating table. She then underwent spinal anesthesia in the seated position and then placed supine again. A Morales catheter was inserted. An unsterile tourniquet was placed high on the proximal thigh. The patient was noted to have full range of motion. A lateral post was positioned at the hip as well as a post was placed distal in the knee to keep the knee in flexion. The left leg was then prepped and draped in the usual sterile fashion beginning with chlorhexidine soap, scrub, and alcohol wipe and a final prep with ChloraPrep. After appropriate surgical pause indicating side, site, procedure, and administration of antibiotics, with the knee in hyperflexion, a skin incision was made through the knee from the tibial tubercle to 2 fingerbreadths proximal to the superior pole of the patella. Skin and subcutaneous were divided down to the prepatellar bursa. Hemostasis was obtained throughout the entirety of the case using electrocautery, after which the medial parapatellar approach was then made and encountering some synovial fluid. The anteromedial soft tissues of the tibia were then carefully released all the way to the bone along the joint line. Any osteophytes were removed at this point. Once the medial soft tissues were released, attention was taken to the patellar tendon. The patella was everted and the fat pad was carefully removed. There were abundant grade 4 changes with large osteophytes about the patella. The knee was then hyperflexed again and exposure of the tibia was done. There were excess osteophytes anteriorly, released using the rongeur. The anterior horns of the medial and lateral meniscus were then incised and removed. The ACL and PCL were carefully lifted from their femoral origins. The tibia was then subluxed forward and the medial and lateral menisci were released somewhat. The PCL was carefully excised. Hemostasis was obtained at all times. The distal anterior femur was also exposed subperiosteally for referencing. After the tibia was exposed, the proximal tibial cut was made first using the external tibial alignment guide with care to remove only a slight amount of bone medially and about 8 to 10 mm laterally. The femoral drill was then utilized and the stepcut guide was used in the femoral canal. It was then suctioned to discourage any embolization. The distal femoral cutting guide was then applied on 0 with 6 degrees of valgus. Distal femoral cuts were completed. Extension gap was found to be 10 and fit nicely. The femur was then measured for size 4. The anterior, posterior and chamfer cuts were then completed. At this point, flexion gap was checked and it was some-what tight. Therefore any remaining soft tissue, at the PCL, meniscus, any osteophytes were removed at this stage and the flexion block was then checked again. The 10 mm block was found to have appropriate flexion. This was at 90 degrees. The femur was then finished with the size 4 notch. Intercondylar cutouts were then made. The femoral canal was then cleaned out several times with saline and suctioned empty. The bone block was inserted. The tibia was then completed for a size C with the intramedullary drill and then the punch. A size 10 poly was chosen initially and the femoral trial was placed and was checked. It was found to be slightly loose; therefore, a size 11 was chosen and had nice ligament stability. This was a posterior stabilized knee. At this point, knee range of motion was checked. ROM was 0 to 130 degrees. The patella was found to track appropriately. Then, the knee was placed in full extension. The patella was everted and the cutting guide was then placed. A size 35 was chosen and 3 drill holes were made. There was very hard sclerotic bone; therefore, the drill was used to drill to allow for extra areas of coverage. The drill holes were undercut with the curette. There was no need for lateral release. The leg was then exsanguinated and the tourniquet inflated to 275 degrees. The final components were opened up. The knee was then cleaned entirely in extension with 2 L of pulsed saline. Careful hemostasis was checked and achieved. The knee was then cleaned with the knee in flexion. Retractors were placed. All surfaces were then cleaned in flexion with pulsed saline. Surfaces were dried. The cement was mixed on the back table. The components were cemented into position, first was the patella, then the tibia, followed by the femur. The excess cement was removed and the knee was articulated and extended during final hardening. After hardening, all excess cement was removed. Tourniquet was deflated for a total time of 33 minutes. Hemostasis was obtained. The wound was closed. The knee was checked and tracking was found to be good position. There was no need for a lateral release. Once the final check for cement was done, the pericapsular tissues were infiltrated with Marcaine posteromedially, medially and laterally. Closure was done with #1 Vicryl in a [id number] fashion at the quad tendon and medial retinaculum. Deep fascia was closed with 3-0 Monocryl and carmen. The knee was then extended and flexed prior to closure and the ligaments remained stable. The patient had a warm and well-perfused extremity at the end. Dressings were done after carmen and sterile Webril, Cryo/Cuff, ABD were placed. She was awoken from anesthesia and transferred to the PACU in stable condition. POSTOPERATIVE PLAN: She will be weightbearing as tolerated and admitted to the floor for optimization. Medicine will be consulted due to her medical history. She will be started on Eliquis for DVT prophylaxis due to her previous history for 4 to 6 weeks. She will receive perioperative antibiotics. She will start therapy right away. Morales will be discontinued tomorrow. [id number]/[facility] #: [id number] [facility]
== END 2018-07-22 11:15 | disposition home health service (06) | DRG 302 ==
LOC: AA 05:34 → SSU 10:58
PROVIDERS: ADMIT Orthopaedic Surgery; ATTEND Orthopaedic Surgery
PROC: 0SRD0J9 Replacement of Left Knee Joint with Synthetic Substitute, Cemented, Open Approach (ICD-10-PCS; principal; 2018-07-19 07:30)
DX: M17.12 Unilateral primary osteoarthritis, left knee (principal); I10 Essential (primary) hypertension; E78.00 Pure hypercholesterolemia, unspecified; E03.9 Hypothyroidism, unspecified; G51.0 Bell's palsy; E11.9 Type 2 diabetes mellitus without complications; F32.9 Major depressive disorder, single episode, unspecified; E78.5 Hyperlipidemia, unspecified; F17.210 Nicotine dependence, cigarettes, uncomplicated; M25.762 Osteophyte, left knee; K21.9 Gastro-esophageal reflux disease without esophagitis; R42 Dizziness and giddiness; Z86.718 Personal history of other venous thrombosis and embolism; Z90.710 Acquired absence of both cervix and uterus; Z83.3 Family history of diabetes mellitus; Z82.49 Family history of ischemic heart disease and other diseases of the circulatory system; Z82.3 Family history of stroke; Z72.89 Other problems related to lifestyle; Z79.84 Long term (current) use of oral hypoglycemic drugs
CPT/HCPCS: 36415; 80048; 85014; 85018; 85049; 88305; 88311; 90732; A9270-GY; C1776; J0690; J1100; J1170; J1885; J2250; J2270; J2405; J2795; J3010